=== PATIENT | female | born 1960 | race Caucasian/White ===

== ENCOUNTER 2022-03-16 01:17 | Emergency (ER) | payer MEDICAID ==
[~2022-03-16] VITALS: Ht 162.6 cm; Wt 122.5 kg
[2022-03-16 01:20] VITALS: BP 126/59
[2022-03-16] MEDS ORDERED: cephALEXin 500 MG CAP PO ONE (01:20)
[2022-03-16] MEDS ORDERED: LIDOCAINE MPF 1% 10 MG/ML VIAL INJ ONE ×3 (01:20→04:05)
[2022-03-16] MEDS ORDERED: IBUPROFEN 800 MG TAB PO ONE (01:20)
--- NOTE | 2022-03-16 01:20 | NUR ---
RECEIVED IN BED 7 WITH C/O LACERATIONS TO FACE. PT WAS DRINKING [employer] "ALL DAY" AND TONIGHT TRIPPED AND FELL WHEN ENTERING THE HOUSE, HIT RAIL ON DOOR. JANIYA HO. APPROX 4" LACERATION NOTED TO LEFT FOREHEAD, APPROX 2" LACERATION NOTED ACROSS BRIDGE OF NOSE. NOEL.
--- NOTE | 2022-03-16 01:20 | NUR ---
PT TAKEN TO ER BED 07
--- NOTE | 2022-03-16 01:31 | NUR ---
TO CT VIA W/C
--- NOTE | 2022-03-16 02:00 | NUR ---
MEDICATED PER [facility] ORDER, TOLERATED WELL
[2022-03-16] MEDS ORDERED: LIDOCAINE MPF 1% 10 ML ONE (03:25)
[2022-03-16] MEDS ORDERED: IBUP-2218 PO (03:43)
--- NOTE | 2022-03-16 03:45 | NUR ---
DR JAIN AT BEDSIDE SUTURING
[2022-03-16 04:15] VITALS: BP 126/59
== END 2022-03-16 04:15 | disposition home or self-care (01) ==
LOC: MED 01:17
DX: S01.81XA Laceration without foreign body of other part of head, initial encounter (principal); S01.21XA Laceration without foreign body of nose, initial encounter; F10.129 Alcohol abuse with intoxication, unspecified; R42 Dizziness and giddiness; I10 Essential (primary) hypertension; Z79.1 Long term (current) use of non-steroidal anti-inflammatories (NSAID); W45.8XXA Other foreign body or object entering through skin, initial encounter; Y93.89 Activity, other specified; Y92.89 Other specified places as the place of occurrence of the external cause; Y99.8 Other external cause status
CPT/HCPCS: 12017; 70450; 70486; 90471; 90715; 99284; J2001